=== PATIENT | female | born 1970 | race Caucasian/White ===

== ENCOUNTER → 2021-11-13 08:39 | Outpatient (BNVA) | payer OTHER, SELFPAY | PROVIDERS: Visit Provider Nurse Practitioner Family | DX: G25.0 Essential tremor (principal); Z68.41 Body mass index [BMI] 40.0-44.9, adult; Z13.6 Encounter for screening for cardiovascular disorders; Z13.29 Encounter for screening for other suspected endocrine disorder; E55.9 Vitamin D deficiency, unspecified; E53.8 Deficiency of other specified B group vitamins | CPT/HCPCS: 80053; 80061; 82306; 82607; 84443; 85025 ==

== ENCOUNTER → 2021-11-19 15:19 | Outpatient (BNVA) | payer OTHER, SELFPAY | PROVIDERS: Visit Provider Nurse Practitioner Family | DX: J02.9 Acute pharyngitis, unspecified (principal) | CPT/HCPCS: 87880 ==

== ENCOUNTER → 2022-10-28 15:58 | Outpatient (BNVA) | payer OTHER, SELFPAY | PROVIDERS: Visit Provider Nurse Practitioner Family | DX: R25.1 Tremor, unspecified (principal); Z82.0 Family history of epilepsy and other diseases of the nervous system; E55.9 Vitamin D deficiency, unspecified; Z13.6 Encounter for screening for cardiovascular disorders; E53.8 Deficiency of other specified B group vitamins; Z13.29 Encounter for screening for other suspected endocrine disorder; R53.83 Other fatigue | CPT/HCPCS: 80053; 80061; 82306; 82607; 84443; 85025 ==

== ENCOUNTER → 2022-12-05 14:55 | Outpatient (BNVA) | payer OTHER, SELFPAY | PROVIDERS: Visit Provider Nurse Practitioner Family | DX: R74.8 Abnormal levels of other serum enzymes (principal) | CPT/HCPCS: 80053 ==

== ENCOUNTER 2023-01-29 14:38 | Outpatient (CLI) | payer OTHER, SELFPAY ==
--- NOTE | 2023-01-29 15:00 | MM_ITS ---
WS: [id number] BILATERAL 3D TOMOSYNTHESIS DIGITAL SCREENING MAMMOGRAPHY WITH CAD CLINICAL INFORMATION: Z12.31 - Encounter for screening mammogram for malignant ... HISTORY: Screening mammogram. RIGHT breast pain and soreness COMPARISON: February 12, 2022 TECHNIQUE: Bilateral CC and MLO views. FINDINGS: Scattered fibroglandular densities bilaterally. No suspicious focal mass, asymmetry, calcifications, or architectural distortion. No evidence of malignancy. A few incidental punctate calcifications. MM/[id number] IMPRESSION: BI-RADS: 2-Benign FOLLOW UP: 1 Year Follow-up Recommend return to annual screening mammography.
== END 2023-01-29 14:39 | disposition home or self-care (01) ==
LOC: RAD 14:40
PROVIDERS: PCP Nurse Practitioner Family; Visit Provider Nurse Practitioner Family
DX: Z12.31 Encounter for screening mammogram for malignant neoplasm of breast (principal)
CPT/HCPCS: 77063; 77067

== ENCOUNTER 2023-07-24 15:22 | Emergency (ER) | payer OTHER, SELFPAY ==
--- NOTE | 2023-07-24 15:28 | ECG_ITS ---
[facility] Test Date: 2023-07-24 Pat Name: Joan Man Department: Room: Gender: Female Program Supervisor: : 1970 Requested By: Karl Mckay Order Number: [id number] Vivian MD: Radha Gee M.D. Measurements Intervals [place] Rate: 82 P: 18 OR: 188 QRS: 19 QRSD: 97 T: 1 QT: 391 QTc: 457 Interpretive Statements SINUS RHYTHM POSSIBLE LEFT ATRIAL ENLARGEMENT [-0.1mV P-WAVE IN V1/V2] No previous ECG available for comparison Electronically Signed On 07-24-2023 20:08:13 CDT by Radha Gee M.D. [id number]
[2023-07-24 15:30] VITALS: BP 161/109; PULSE 76; RESP 16; TEMP 36.6; O2SAT 99; BMI 41.5
--- NOTE | 2023-07-24 15:40 | XR_ITS ---
WS: [id number] EXAMINATION: XR chest 1V portable [id number] REASON FOR EXAM: chest pain COMPARISON: None available. ORDER DATE: 07/24/2023 3:43 PM TECHNIQUE: A single, portable frontal chest x-ray was obtained. X-RAY FINDINGS: The lungs are clear. Pleural spaces are clear. No pleural effusions or pneumothorax. Cardiomediastinal silhouette is normal. No evidence for pulmonary edema. Soft tissue and osseous structures are unremarkable. No tubes or lines are present. IMPRESSION: Unremarkable frontal portable chest x-ray.
[2023-07-24] MEDS: aspirin 81 mg Chew Tablet 324 MG PO (15:56)
[2023-07-24 15:58] VITALS: BP 164/120; PULSE 71; RESP 18; O2SAT 96
[2023-07-24 16:07] LABS: Basophils # 0.1 10^3/uL (0.0-0.1); Basophils % 0.8 %; Eosinophils # 0.3 10^3/uL (0.0-0.8); Eosinophils % 4.2 %; Hematocrit 43.8 % (36-47); Lymphocytes # 2.5 10^3/uL (0.8-4.8); Lymphocytes % 38.5 %; Mean Corpuscular HGB Conc 33.8 g/dL (30-55); Mean Corpuscular Hemoglobin 31.2 pg (27-33); Mean Corpuscular Volume 92.2 fl (85-98); Mean Platelet Volume 9.3 fL (7.4-10.4); Monocytes # 0.4 10^3/uL (0.2-0.9); Monocytes % 6.5 %; Neutrophils # 3.28 10^3/uL (1.8-7.7); Neutrophils % 49.7 %; Nucleated Red Blood Cells % 0 %; Platelet Count 256 10^3/cmm (157-399); Red Blood Count 4.75 10^6/uL (3.85-5.65); Red Cell Distribution Width 13.2 % (12.1-15.1)
--- NOTE | 2023-07-24 16:21 | ED_ITS ---
Documented by User: Karl Hayes DO 07/24/23 18:16 HPI - Chest Pain General: Chief Complaint: Chest Pain Stated Complaint: chest pain Time Seen by Provider: 07/24/23 15:33 Source: patient Mode of arrival: ambulatory History of Present Illness: 53-year-old female who presents emergency room with complaint of chest discomfort. Intermittently she has had right-sided chest discomfort in her righ t shoulder and arm for the last 3 weeks. Is also associated with a fluttering sensation in chest that lasts a few seconds and then resolves. No history of coronary artery disease. No previous evaluation she is not having any symptoms at this time no recent cough cold or fever symptoms MD complaint: chest pain Onset (ago): week(s) Timing of current episode: episodic Prior episodes: Yes Onset: during exertion Pain location: right chest Pain radiation: right arm and right shoulder Quality: tightness and aching Relieving factors: nothing Exacerbating factors: nothing Associated symptoms: Reports palpitations; Deny abdominal pain, diaphoresis, dyspnea, fever(s), leg edema, nausea, sense of impending doom, syncope or vomiting Treatment prior to arrival: none Review of Systems Const: Denies: fever(s), chills, fatigue, malaise or diaphoresis ENMT: Denies: throat pain, ear or mastoid pain, nasal discharge or nasal congestion Card: Reports: chest pain and palpitations; Denies: irregular heart rhythm, edema, syncope, dyspnea on exertion or orthopnea Resp: Denies: dyspnea, productive cough, non-productive cough or wheezing GI: Denies: abdominal pain, nausea or vomiting : Denies: flank pain, difficulty voiding, dysuria, urinary frequency or urinary urgency Musc: Denies: neck pain Skin/Breast: Denies: rash or pruritus PFSH ED PFSH: Family History Father Stroke Dementia Mother Cancer Brother Hypertension Social History Smoking and tobacco status: never smoked Alcohol intake: never Physical Exam Const: GENERAL APPEARANCE: cooperative and comfortable ORIE NTATION/CONSCIOUSNESS: Yes awake, Yes oriented to person, Yes oriented to place and Yes oriented to time HENMT: COMMON NORMALS: normocephalic, atraumatic and hearing grossly normal bilaterally HEAD & SCALP: normocephalic and atraumatic Resp: COMMON NORMALS: normal respiratory effort, No retractions, No use of accessory muscles and clear to auscultation bilaterally AUSCULTATION: clear to auscultation bilaterally Cardio: COMMON NORMALS: regular rate, regular rhythm and No murmurs present (Cardio) RATE: regular rate RHYTHM: regular rhythm GI: COMMON NORMALS: Soft to palpation and No hepatosplenomegaly present AUSCULTATION: Yes normoactive bowel sounds PALPATION: Yes Soft to palpation, No Tenderness to palpation present (GI), No Guarding due to palpation present (GI) and Yes No hepatosplenomegaly present Extremity: COMMON NORMALS: normal to inspection, capillary refill normal, no clubbing, cyanosis or edema, no calf tenderness and no pedal edema Neuro: SENSORIUM/ORIENTATION: Yes oriented to person, Yes oriented to place and Yes oriented to time Skin: COMMON NORMALS: no rashes or lesions noted GENERAL SKIN EXAM: no rashes or lesions noted Course Vital Signs: Vital signs: Vital Signs Temperature 97.8 F 07/24/23 15:30 Pulse Rate 68 07/24/23 18:57 Respiratory Rate 16 07/24/23 18:57 Blood Pressure 155/95 07/24/23 18:57 Pulse Oximetry 94 07/24/23 18:57 Oxygen Delivery Me thod Room Air 07/24/23 18:19 MDM - Chest Pain Medical Decision Making Care signed out to Dr. Wells at change of shift. See final notes for diagnosis and disposition. Lab Data 07/24/23 16:00 07/24/23 16:00 Laboratory Results WBC 6.60 10^3/uL (3.29-11.43) 07/24/23 16:00 RBC 4.75 10^6/uL (3.85-5.65) 07/24/23 16:00 Hgb 14.80 g/dL (11.27-16.99) 07/24/23 16:00 Hct 43.8 % (36-47) 07/24/23 16:00 MCV 92.2 fl (85-98) 07/24/23 16:00 MCH 31.2 pg (27-33) 07/24/23 16:00 MCHC 33.8 g/dL (30-55) 07/24/23 16:00 RDW 13.2 % (12.1-15.1) 07/24/23 16:00 Plt Count 256 10^3/cmm (157-399) 07/24/23 16:00 MPV 9.3 fL (7.4-10.4) 07/24/23 16:00 Neut % (Auto) 49.7 % 07/24/23 16:00 Lymph % (Auto) 38.5 % 07/24/23 16:00 [place] % (Auto) 6.5 % 07/24/23 16:00 Eos % (Auto) 4.2 % 07/24/23 16:00 Baso % (Auto) 0.8 % 07/24/23 16:00 Neut # (Auto) 3.28 10^3/uL (1.8-7.7) 07/24/23 16:00 Lymph # (Auto) 2.5 10^3/uL (0.8-4.8) 07/24/23 16:00 [place] # (Auto) 0.4 10^3/uL (0.2-0.9) 07/24/23 16:00 Eos # (Auto) 0.3 10^3/uL (0.0-0.8) 07/24/23 16:00 Baso # (Auto) 0.1 10^3/uL (0.0-0.1) 07/24/23 16:00 Nucleated RBC % (auto) 0 % 07/24/23 16:00 Nucleated RBCs # 0.0 /100WBC 07/24/23 16:00 Sodium 138 mmol/L (136-145) 07/24/23 16:00 Potassium 4.5 mmol/L (3.5-5.1) 07/24/23 16:00 Chloride 101 mmol/L (98-107) 07/24/23 16:00 Carbon Dioxide 23 mmol/L (22-29) 07/24/23 16:00 Anion Gap 18.5 (5-19) 07/24/23 16:00 BUN 19 mg/dL (6-20) 07/24/23 16:00 Creatinine 0.7 mg/dL (0.5-0.9) 07/24/23 16:00 GFR Calculation 87.5 mL/min (90-130) L 07/24/23 16:00 Glucose 90 mg/dL (65-115) 07/24/23 16:00 Calculated Osmolality 288 mOsm/kg (285-295) 07/24/23 16:00 Calcium 9.4 mg/dL (8.5-10.5) 07/24/23 16:00 Total Bilirubin 0.3 mg/dL (0.15-1.2) 07/24/23 16:00 AST 22 U/L (0-32) 07/24/23 16:00 ALT 14 U/L (0-33) 07/24/23 16:00 Alkaline Phosphatase 115 U/L (35-105) H 07/24/23 16:00 Troponin T Baseline 12 ng/L (0-10) H 07/24/23 16:00 Troponin T 120 Minute 11.77 ng/L (0-10) H 07/24/23 17:40 Delta Troponin T -0.23 ABS# (0-10) L 07/24/23 17:40 Total Protein 7.1 g/dL (6.6-8.7) 07/24/23 16:00 Albumin 4.4 g/dL (3.5-5.2) 07/24/23 16:00 Globulin 2.7 g/dL (1.3-4.6) 07/24/23 16:00 XR interpretation done by ED provider, pending radiology final review Discharge Plan Discharge Patient Disposition: Home Clinical Impression: Chest pain, Hypertension Condition: Stable Prescriptions: No Action thiamine HCl (vitamin B1) 100 mg tablet 50 mg PO QAM cholecalciferol (vitamin D3) 50 mcg (2,000 unit) capsule 100 mcg PO QAM primidone 50 mg tablet 150 mg PO QPM zinc acetate 50 mg (zinc) Capsule 50 mg PO QAM ibuprofen 200 mg Tablet 400 mg PO Q6H PRN (Reason: Pain) cetirizine 10 mg tablet 10 mg PO QAM Discharge Orders: Discharge ED (Routine); Ordered 07/24/23 Ordered By: Theodore Wells Referrals: Maria Del Carmen Salazar, DOMITILA [Primary Care Provider] - 1-3 days Patient Instructions: Chest Pain (ED), Hypertension (ED) Activity Restrictions/Additional Instructions: Check your blood pressures twice daily if able. Report numbers to your doctor. Follow-up with your doctor next week. Further outpatient testing may be needed. Return for worsening chest discomfort or shortness of breath. Coding Level of Care Code ED Chopper Gun Operator for Chg Fwd Documented by User: Theodore Wells DO 07/24/23 20:30 HPI - Chest Pain General: Chief Complaint: Chest Pain Stated Complaint: chest pain Time Seen by Provider: 07/24/23 15:33 PFSH ED PFSH: Family History Father Stroke Dementia Mother Cancer Brother Hypertension Social History Smoking and tobacco status: never smoked Alcohol intake: never Course Vital Signs: Vital signs: Vital Signs Temperature 97.8 F 07/24/23 15:30 Pulse Rate 68 07/24/23 18:57 Respiratory Rate 16 07/24/23 18:57 Blood Pressure 155/95 07/24/23 18:57 Pulse Oximetry 94 07/24/23 18:57 Oxygen Delivery Me thod Room Air 07/24/23 18:19 MDM - Chest Pain Medical Decision Making Care signed out to Dr. Wells at change of shift. See final notes for diagnosis and disposition. 53-year-old female checked out at shift change by Dr. Hayes. No chest pain currently. EKG was not remarkable. Troponin stays stable at 2 hours. Other blood work is essentially normal. Chest x-ray is negative. She has been mildly hypertensive here. She is asked to check her blood pressure twice daily and report numbers to her physician in follow-up. She demonstrates understanding. Lab Data 07/24/23 16:00 07/24/23 16:00 Laboratory Results WBC 6.60 10^3/uL (3.29-11.43) 07/24/23 16:00 RBC 4.75 10^6/uL (3.85-5.65) 07/24/23 16:00 Hgb 14.80 g/dL (11.27-16.99) 07/24/23 16:00 Hct 43.8 % (36-47) 07/24/23 16:00 MCV 92.2 fl (85-98) 07/24/23 16:00 MCH 31.2 pg (27-33) 07/24/23 16:00 MCHC 33.8 g/dL (30-55) 07/24/23 16:00 RDW 13.2 % (12.1-15.1) 07/24/23 16:00 Plt Count 256 10^3/cmm (157-399) 07/24/23 16:00 MPV 9.3 fL (7.4-10.4) 07/24/23 16:00 Neut % (Auto) 49.7 % 07/24/23 16:00 Lymph % (Auto) 38.5 % 07/24/23 16:00 [place] % (Auto) 6.5 % 07/24/23 16:00 Eos % (Auto) 4.2 % 07/24/23 16:00 Baso % (Auto) 0.8 % 07/24/23 16:00 Neut # (Auto) 3.28 10^3/uL (1.8-7.7) 07/24/23 16:00 Lymph # (Auto) 2.5 10^3/uL (0.8-4.8) 07/24/23 16:00 [place] # (Auto) 0.4 10^3/uL (0.2-0.9) 07/24/23 16:00 Eos # (Auto) 0.3 10^3/uL (0.0-0.8) 07/24/23 16:00 Baso # (Auto) 0.1 10^3/uL (0.0-0.1) 07/24/23 16:00 Nucleated RBC % (auto) 0 % 07/24/23 16:00 Nucleated RBCs # 0.0 /100WBC 07/24/23 16:00 Sodium 138 mmol/L (136-145) 07/24/23 16:00 Potassium 4.5 mmol/L (3.5-5.1) 07/24/23 16:00 Chloride 101 mmol/L (98-107) 07/24/23 16:00 Carbon Dioxide 23 mmol/L (22-29) 07/24/23 16:00 Anion Gap 18.5 (5-19) 07/24/23 16:00 BUN 19 mg/dL (6-20) 07/24/23 16:00 Creatinine 0.7 mg/dL (0.5-0.9) 07/24/23 16:00 GFR Calculation 87.5 mL/min (90-130) L 07/24/23 16:00 Glucose 90 mg/dL (65-115) 07/24/23 16:00 Calculated Osmolality 288 mOsm/kg (285-295) 07/24/23 16:00 Calcium 9.4 mg/dL (8.5-10.5) 07/24/23 16:00 Total Bilirubin 0.3 mg/dL (0.15-1.2) 07/24/23 16:00 AST 22 U/L (0-32) 07/24/23 16:00 ALT 14 U/L (0-33) 07/24/23 16:00 Alkaline Phosphatase 115 U/L (35-105) H 07/24/23 16:00 Troponin T Baseline 12 ng/L (0-10) H 07/24/23 16:00 Troponin T 120 Minute 11.77 ng/L (0-10) H 07/24/23 17:40 Delta Troponin T -0.23 ABS# (0-10) L 07/24/23 17:40 Total Protein 7.1 g/dL (6.6-8.7) 07/24/23 16:00 Albumin 4.4 g/dL (3.5-5.2) 07/24/23 16:00 Globulin 2.7 g/dL (1.3-4.6) 07/24/23 16:00 Discharge Plan Discharge Patient Disposition: Home Clinical Impression: Chest pain, Hypertension Condition: Stable Prescriptions: No Action thiamine HCl (vitamin B1) 100 mg tablet 50 mg PO QAM cholecalciferol (vitamin D3) 50 mcg (2,000 unit) capsule 100 mcg PO QAM primidone 50 mg tablet 150 mg PO QPM zinc acetate 50 mg (zinc) Capsule 50 mg PO QAM ibuprofen 200 mg Tablet 400 mg PO Q6H PRN (Reason: Pain) cetirizine 10 mg tablet 10 mg PO QAM Discharge Orders: Discharge ED (Routine); Ordered 07/24/23 Ordered By: Theodore Wells Referrals: Maria Del Carmen Salazar NP [Primary Care Provider] - 1-3 days Patient Instructions: Chest Pain (ED), Hypertension (ED) Activity Restrictions/Additional Instructions: Check your blood pressures twice daily if able. Report numbers to your doctor. Follow-up with your doctor next week. Further outpatient testing may be needed. Return for worsening chest discomfort or shortness of breath. Coding Level of Care Code ED Chopper Gun Operator for Domonique Solis
[2023-07-24 16:24] LABS: Troponin(5th) Baseline 12 ng/L (0-10)
[2023-07-24 16:27] LABS: Alanine Aminotransferase 14 U/L (0-33); Albumin Level 4.4 g/dL (3.5-5.2); Alkaline Phosphatase 115 U/L (35-105); Anion Gap 18.5 (5-19); Aspartate Amino Transferase 22 U/L (0-32); Blood Urea Nitrogen 19 mg/dL (6-20); Calcium 9.4 mg/dL (8.5-10.5); Carbon Dioxide 23 mmol/L (22-29); Chloride 101 mmol/L (98-107); Globulin 2.7 g/dL (1.3-4.6); Glomerular Filtration Rate 87.5 mL/min (90-130); Glucose 90 mg/dL (65-115); Osmolality Calculated 288 mOsm/kg (285-295); Potassium 4.5 mmol/L (3.5-5.1); Sodium 138 mmol/L (136-145); Total Bilirubin 0.3 mg/dL (0.15-1.2); Total Protein 7.1 g/dL (6.6-8.7)
--- NOTE | 2023-07-24 17:41 | ECG_ITS ---
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 Measurements Intervals [place] Rate: 58 P: 58 MA: 194 QRS: 81 QRSD: 119 T: 48 QT: 432 QTc: 427 Interpretive Statements SINUS BRADYCARDIA LOW QRS VOLTAGE IN PRECORDIAL LEADS [QRS DEFLECTION < 1.0 mV IN CHEST LEADS] INCOMPLETE RIGHT BUNDLE BRANCH BLOCK [90+ ms QRS DURATION, TERMINAL R IN V1/V2, 40+ ms S IN I/aVL/V4/V5/V6] Compared to ECG 07/24/2023 15:28:58 Low QRS voltage now present Incomplete right bundle-branch block now present Sinus rhythm no longer present Electronically Signed On 07-24-2023 20:08:22 CDT by Radha Gee M.D. [id number]
[2023-07-24 18:14] LABS: Troponin 5 2HR 11.77 ng/L (0-10)
[2023-07-24 18:15] LABS: Troponin 5 2HR Delta -0.23 ABS# (0-10)
[2023-07-24 18:19] VITALS: BP 155/96; PULSE 73; RESP 16; O2SAT 92
[2023-07-24 18:57] VITALS: BP 155/95; PULSE 68; RESP 16; O2SAT 94
== END 2023-07-24 18:55 | disposition home or self-care (01) ==
PROVIDERS: Family Medicine; Emergency Provider Emergency Medicine; PCP Nurse Practitioner Family
DX: R07.9 Chest pain, unspecified (principal); I10 Essential (primary) hypertension
CPT/HCPCS: 36415; 71045; 80053; 84484; 85025; 93005; 99285

== ENCOUNTER 2024-05-04 14:20 | Outpatient (CLI) | payer OTHER, SELFPAY ==
--- NOTE | 2024-05-04 14:20 | MM_ITS ---
WS: [id number] BILATERAL 3D TOMOSYNTHESIS DIGITAL SCREENING MAMMOGRAPHY WITH CAD CLINICAL INFORMATION: SCREENING HISTORY: Screening mammogram. No current complaints. COMPARISON: 2022 TECHNIQUE: Bilateral CC and MLO views. FINDINGS: Scattered fibroglandular densities bilaterally. No suspicious focal mass, asymmetry, calcifications, or architectural distortion. No evidence of malignancy. Stable intramammary lymph nodes along the axi llary tail. MM/[place] [id number] IMPRESSION: BI-RADS: 2-Benign FOLLOW UP: 1 Year Follow-up Recommend return to annual screening mammography.
== END 2024-05-04 14:21 | disposition home or self-care (01) ==
LOC: MOBLMAM 14:27
PROVIDERS: PCP Nurse Practitioner Family; Visit Provider Nurse Practitioner Family
DX: Z12.31 Encounter for screening mammogram for malignant neoplasm of breast (principal); R92.323 Mammographic fibroglandular density, bilateral breasts
CPT/HCPCS: 77063; 77067

== ENCOUNTER → 2024-10-27 14:25 | Outpatient (BNVA) | payer OTHER, SELFPAY | PROVIDERS: PCP Nurse Practitioner Family; Visit Provider Family Medicine | DX: N39.0 Urinary tract infection, site not specified (principal) | CPT/HCPCS: 81000 ==

== ENCOUNTER 2025-06-07 13:40 | Outpatient (CLI) | payer OTHER, SELFPAY ==
--- NOTE | 2025-06-07 13:40 | MM_ITS ---
WS: [id number] BILATERAL SCREENING DIGITAL TOMOSYNTHESIS MAMMOGRAM WITH CAD HISTORY: SCREENING COMPARISON: 05/04/2024, 01/29/2023 Bilateral CC and MLO views with tomosynthesis and synthetic mammography submitted. Computer aided detection analyzed. Breast composition: There are scattered areas of fibroglandular density. No suspicious masses, microcalcifications or architectural distortion. Benign lymph node RIGHT axillary tail. MM/MM scr BI tomosynthesis [id number] IMPRESSION: BI-RADS: 2 - Benign. FOLLOW UP: 1 Year Follow-up
== END 2025-06-07 13:41 | disposition home or self-care (01) ==
LOC: MOBLMAM 13:42
PROVIDERS: PCP Nurse Practitioner Family; Visit Provider Nurse Practitioner Family
DX: Z12.31 Encounter for screening mammogram for malignant neoplasm of breast (principal); R92.323 Mammographic fibroglandular density, bilateral breasts; N63.31 Unspecified lump in axillary tail of the right breast
CPT/HCPCS: 77063; 77067